=== PATIENT | female | born 1985 | race Caucasian/White ===

== ENCOUNTER 2020-10-18 19:50 | Emergency (ER) | payer BC, MEDICAID ==
[~2020-10-18] VITALS: Ht 167.6 cm; Wt 68.0 kg
[~2020-10-18 19:50] MED LIST: OXYC-134 PO
[2020-10-18 20:52] VITALS: BP 141/73
[2020-10-18 20:53] LABS: BASOPHILS % (AUTO) 0.5 % (0-1); EOSINOPHILS # (AUTO) 0.1 X10'3 (0-0.9); EOSINOPHILS % (AUTO) 1.6 % (0-6); HEMATOCRIT 41.7 % (35.0-45.0); HEMOGLOBIN 13.8 g/dl (12.0-16.0); LYMPHOCYTES # (AUTO) 2.7 X10'3 (1.1-4.8); LYMPHOCYTES % (AUTO) 35.5 % (21-51); MEAN CORPUSCULAR HEMOGLOBIN 28.6 PG (27.0-31.0); MEAN CORPUSCULAR VOLUME 86.6 FL (78-98); MEAN PLATELET VOLUME 7.4 FL (7.4-10.4); MONOCYTES # (AUTO) 0.6 X10'3 (0-0.9); MONOCYTES % (AUTO) 7.8 % (2-12); NEUTROPHILS # (AUTO) 4.1 X10'3 (1.8-7.7); NEUTROPHILS % (AUTO) 54.6 % (42-75); PLATELET COUNT 366 X10'3 (140-440); RED BLOOD COUNT 4.81 X10'6 (4.20-5.60); RED CELL DISTRIBUTION WIDTH 13.3 % (11.5-14.5); WHITE BLOOD COUNT 7.5 X10'3 (4.5-11.0)
[2020-10-18 21:07] LABS: PARTIAL THROMBOPLASTIN TIME 27 SECONDS (22-32)
[2020-10-18 21:08] LABS: ALANINE AMINOTRANSFERASE 16 U/L (12-78); ALBUMIN 4.1 G/DL (3.4-5.0); ALBUMIN/GLOBULIN RATIO 1.2 (1.1-1.5); ALKALINE PHOSPHATASE 75 IU/L (46-116); ANION GAP 11 (8-16); ASPARTATE AMINO TRANSFERASE 17 U/L (10-37); BILIRUBIN,TOTAL 0.2 MG/DL (0.1-1.0); BLOOD UREA NITROGEN 14 MG/DL (7-18); BUN/CREATININE RATIO 11.6 (6.6-38.0); CALCIUM 8.6 MG/DL (8.5-10.1); CHLORIDE 104 MMOL/L (99-107); CREATININE 1.21 MG/DL (0.40-0.90); GLUCOSE 101 MG/DL (70-104); POTASSIUM 3.8 MMOL/L (3.5-5.1); SODIUM 141 MMOL/L (135-145); TOTAL CARBON DIOXIDE 26.5 MMOL/L (24-32); TOTAL PROTEIN 7.6 G/DL (6.4-8.2); eGFR 50 ML/MIN
--- NOTE | 2020-10-18 22:14 | NUR ---
PT SEEN AND ASSESSED BY PROVIDER, PT REFUSED COVID TEST, PLANS TO SEE PMD TOMORROW FOR FOLLOW UP
== END 2020-10-18 22:13 | disposition home or self-care (01) ==
LOC: ER 19:51
DX: R07.89 Other chest pain (principal); M79.10 Myalgia, unspecified site; R53.1 Weakness; R51.9 Headache, unspecified; Z79.899 Other long term (current) drug therapy
CPT/HCPCS: 36415; 71045; 80053; 84484; 85025; 85610; 85730; 93005; 99285

== ENCOUNTER 2025-03-14 21:11 | Emergency (ER) | payer BC, MEDICAID ==
[~2025-03-14] VITALS: Ht 170.2 cm; Wt 72.3 kg
--- NOTE | 2025-03-14 21:51 | ELECTROCARDIOGRAPH REPORT ---
[facility] Test Date: 2025-03-14 Test Time: 21:50:34 Pat Name: BRIGIDO QUEEN Department: [facility]- Patient ID: [id number] Room: Gender: F [employer]: : 1985 Requested By: RUSTY CARTWRIGHT Order Number: [id number] Reading MD: Dr. Leon Scott Measurements Intervals [place] Rate: 72 P: 13 [place]: 150 QRS: 58 QRSD: 83 T: 46 QT: 372 QTc: 408 Interpretive Statements Sinus rhythm Electronically Signed On 03-15-2025 9:04:[address] Leon Scott Please click the below link to view image of tracing.
[2025-03-14 22:12] LABS: MEAN PLATELET VOLUME 7.7 FL (7.4-10.4); RED CELL DISTRIBUTION WIDTH 13.1 % (11.5-14.5)
[2025-03-14 22:33] LABS: CREATININE 0.95 MG/DL (0.40-0.90); PRO BRAIN NATRIURETIC PEPTIDE < 30 PG/ML (0-125); TOTAL CARBON DIOXIDE 27.1 MMOL/L (24-32); eCRCL 77 ML/MIN; eGFR 65 ML/MIN
--- NOTE | 2025-03-14 22:37 | RADIOLOGY REPORT ---
CHEST RADIOGRAPH INDICATION: CP TECHNIQUE: Single frontal view of the chest was obtained COMPARISON: CHEST,SINGLE VIEW on DOS: 10/18/20 FINDINGS: Lines and Tubes: None Lungs: Clear Pleura: No pleural effusion or pneumothorax. Cardiomediastinal contours: Unremarkable IMPRESSION: No abnormality demonstrated.
--- NOTE | 2025-03-15 00:37 | Physician Documentation ---
History of Present Illness ~ Chief Complaint: Palpitations Stated Complaint: MULTIPLE MED COMPLAINTS Time Seen by MD: 00:36 Primary Medical Doctor: sukhjinder luz [facility] Patient presents to the emergency room with a chief complaint of palpitations. Patient has had palpitations previously she reports a negative Holter monitor proximally three years ago. She had denies history of high blood pressure and that has not. She states that her last blood test showed that has a cholesterol that has a little bit high but her doctor did not put her on cholesterol medicines and she had denies history of diabetes. She had denies history of heart attacks and family however that has a significant history of blood clots. She had denies one-sided leg pain but does note that she is more short of breath than usual Medication Reconciliation Allergies: Coded Allergies: No Known Allergies (Unverified , 08/26/14) Scheduled PRN Oxycodone HCl/Acetaminophen (Endocet 5-325 Tablet), 1-2 TAB PO Q4H PRN for pain Past Medical History Past Medical History: No Pertinent History Alcohol Use: None Drug Use: none Review of Systems ROS All review of systems negative except as per HPI Physical Exam Vital Signs: Temperature: 98.5, Heart Rate: 73, Respiratory Rate: 16, BP: 125/84, Pulse Oximetry: 98, Weight: 72.300 Oxygen Flow Rate: 0 Physical Exam General: Patient is awake, alert, oriented x4 in no acute distress. Anxious Head: Normocephalic and atraumatic. Eyes: Conjunctival normal. EOMI. PERRL. ENT: Mucous membranes moist. Neck: Supple, trachea is midline. Chest: Clear to auscultation bilaterally without rales, rhonchi, or wheezes. There is no accessory muscle use or retractions. Cardiac: RRR without murmurs, gallops, or rubs. Extremities: Normal strength. Normal range of motion. No deformities or edema. No calf tenderness to palpation Progress Results/Orders Results/Orders Orders - HAIR APPIAH MD Chest,Single View (03/14/25 22:19) Monitor (03/14/25 21:37) Saline Lock (03/14/25 21:37) Oxygen (03/14/25 21:37) Completed Orders - HAIR APPIAH MD Chest,Single View (03/14/25 22:19) Cbc/Diff (03/14/25 21:37) BMP (03/14/25 21:37) PBNP (03/14/25 21:37) Electrocardiogram (03/14/25 21:37) Hs Troponin I W Calculations (03/14/25 21:37) Hs Troponin I W Calculations (03/14/25 23:37) Hs Troponin I W Calculations (03/15/25 00:37) D-Dimer (03/15/25 00:48) Hcg Serum Ql (03/15/25 00:49) Vital Signs 03/14/25 03/14/25 03/15/25 03/15/25 21:33 23:25 01:15 01:16 Temp 98.5 98.5 Pulse 76 73 74 Resp 16 16 14 B/P (MAP) 123/82 125/84 (98) 121/87 (98) Pulse Ox 99 98 98 O2 Flow Rate 0 0 0 Laboratory Tests Test 03/14/25 21:44 03/14/25 23:51 03/15/25 00:57 White Blood Count 6.7 Red Blood Count 4.68 Hemoglobin 13.3 Hematocrit 40.9 Mean Corpuscular Volume 87.4 Mean Corpuscular Hemoglobin 28.5 Mean Corpuscular Hemoglobin Concent 32.6 L Red Cell Distribution Width 13.1 Platelet Count 302 Mean Platelet Volume 7.7 Neutrophils (%) (Auto) 55.4 Lymphocytes (%) (Auto) 35.4 Monocytes (%) (Auto) 7.7 Eosinophils (%) (Auto) 1.1 Basophils (%) (Auto) 0.4 Neutrophils # (Auto) 3.7 Lymphocytes # (Auto) 2.4 Monocytes # (Auto) 0.5 Eosinophils # (Auto) 0.1 Basophils # (Auto) 0.0 CBC Comment D-Dimer 0.41 D-Dimer Comment Sodium Level 140 Potassium Level 3.7 Chloride Level 107 Carbon Dioxide Level 27.1 Anion Gap 6 L Blood Urea Nitrogen 22 H Creatinine 0.95 H Estimated GFR/1.73 m2 65 BUN/Creatinine Ratio 23.2 H Glucose Level 95 Calcium Level 9.0 Troponin I High Sensitivity 7 6 6 Pro-B-Type Natriuretic Peptide < 30 Albumin 3.8 Human Chorionic Gonadotropin, Qual Negative Chemistry Comments Troponin I High Sens Percent Delta 14 0 Troponin I Hi Sens Absolute Change -1 0 EKG/XRAY/CT/US/VASC/MRI EKG : Additional Comment EKG interpreted by myself shows time of 2150, rate 72, sinus rhythm, normal axis, no ST changes Chest X-Ray : Additional Comments Exam: CHEST,SINGLE VIEW CHEST RADIOGRAPH INDICATION: CP TECHNIQUE: Single frontal view of the chest was obtained COMPARISON: CHEST,SINGLE VIEW on DOS: 10/18/20 FINDINGS: Lines and Tubes: None Lungs: Clear Pleura: No pleural effusion or pneumothorax. Cardiomediastinal contours: Unremarkable IMPRESSION: No abnormality demonstrated. Medical Decision Making Additional information obtaine: old records Findings Patient presented to the emergency room with palpitations that has per HPI. Differentials include but are not limited to ACS, pneumothorax, pulmonary embolism, viral syndrome, anxiety therefore emergent labs ordered. Troponins x3 are reassuring as that has D-dimer. EKG reassuring. Patient that has established with a appointment manager. ER precautions discussed. Differential Dx:Considerations: Include: angina / ME, atrial dysrhythmia, atrial fibrillation, atrial flutter, MAT, PACs, PSVT, sinus tachycardia, WPW, 1st degree AV block, 2nd degree AVB-type 1, 2nd degree AVB-type 2, 3rd degree AV block, PVCs, torsades de pointes, ventricular fibrillation, ventricular tachycardia, other Differential Dx:Considerations: Include anxiety/panic attack, Include digoxin toxicity, Include electrolyte disorder, Include heart failure, Include hyperthyroidism, Include hyperventilation, Include hypoxia, Include pacemaker malfunction, Include pulmonary embolus, Include renal failure, Include other Departure Disposition: 01 HOME / SELF CARE / HOMELESS Impression: Primary Impression: Palpitations Condition: Stable Discharge Instructions: Palpitations, [id number] Additional Instructions: Follow up with your doctor as soon as possible Referrals: NO PRIMARY CARE PROVIDER (PCP) Signature Scribe Signature: No scribe Attestation: The note accurately reflects work and decisions made by me.Hair Appiah MD 03/15/25 02:11 HAIR APPIAH MD Mar 15, 2025 00:37
[2025-03-15 01:15] VITALS: TEMP 98.5
[2025-03-15 01:40] LABS: HCG SERUM QL NEGATIVE
[2025-03-15 02:21] VITALS: BP 125/85; PULSE 67; RESP 18; O2SAT 98
== END 2025-03-15 02:27 | disposition home or self-care (01) ==
LOC: ER 21:11
DX: R00.2 Palpitations (principal); Z86.718 Personal history of other venous thrombosis and embolism
CPT/HCPCS: 36415; 71045; 80048; 83880; 84484; 84703; 85025; 85379; 93005; 99285